=== PATIENT | male | born 1980 | race Caucasian/White ===

== ENCOUNTER 2020-01-12 13:28 | Emergency (ER) | payer OTHER ==
[~2020-01-12] VITALS: Ht 180.3 cm; Wt 82.7 kg
[2020-01-12 14:02] VITALS: BP 144/99
--- NOTE | 2020-01-12 15:10 | NUR ---
APPRENTICE/LINEMAN: PT FROM LOBBY TO ROOM AT THIS TIME.
--- NOTE | 2020-01-12 15:42 | NUR ---
TASK RN: TESTS RESULTED, CHART UP FOR RECHECK. PT AWARE.
[2020-01-12] MEDS ORDERED: OXYcodone/APAP 10/325MG TABLET ONE (15:48)
--- NOTE | 2020-01-12 15:50 | NUR ---
TASK RN: PT MED NOTED FOR LEFT ARM PAIN 3/10 AT REST, INCREASES TO 9/10 WITH MOVEMENT
[2020-01-12] MEDS ORDERED: OXYcodone/APAP 10/325MG TABLET PO ONE (16:00)
--- NOTE | 2020-01-12 17:26 | NUR ---
PT DEMANDING JUICE OR HE WILL NOT GET MRI, "I HAVE BEEN WAITING FOR HOURS", PT GIVEN APPLE JUICE, TECH TOOK PT TO MRI
== END 2020-01-12 18:52 | disposition home or self-care (01) ==
LOC: ED 16:58
DX: S46.312A Strain of muscle, fascia and tendon of triceps, left arm, initial encounter (principal); X58.XXXA Exposure to other specified factors, initial encounter; Y93.89 Activity, other specified; Y92.89 Other specified places as the place of occurrence of the external cause; Y99.0 Civilian activity done for income or pay
CPT/HCPCS: 99284